=== PATIENT | female | born 1945 | race Caucasian/White ===

== ENCOUNTER → 2023-12-03 | Outpatient (REF) | payer MEDICARE, SELFPAY | LOC: DHSLP | PROVIDERS: ATTENDING PHYSICIAN Internal Medicine Critical Care Medicine; FAMILY PHYSICIAN Family Medicine | DX: G47.33 Obstructive sleep apnea (adult) (pediatric) (principal); R09.02 Hypoxemia | CPT/HCPCS: 95811 ==

== ENCOUNTER → 2023-12-30 | Outpatient (REF) | payer MEDICARE, SELFPAY | LOC: DHSLP | PROVIDERS: ATTENDING PHYSICIAN Internal Medicine Critical Care Medicine; FAMILY PHYSICIAN Family Medicine | DX: G47.33 Obstructive sleep apnea (adult) (pediatric) (principal) | CPT/HCPCS: 95810 ==

== ENCOUNTER → 2024-01-25 07:51 | Outpatient (REF) | payer MEDICARE, SELFPAY | LOC: RAD 07:51 | PROVIDERS: ATTENDING PHYSICIAN Specialist; FAMILY PHYSICIAN Family Medicine | DX: J44.9 Chronic obstructive pulmonary disease, unspecified (principal); M19.011 Primary osteoarthritis, right shoulder; M25.511 Pain in right shoulder; Z96.611 Presence of right artificial shoulder joint | CPT/HCPCS: 73200 ==

== ENCOUNTER 2024-02-04 05:59 | Inpatient (IN) | payer MEDICARE, SELFPAY ==
--- NOTE | 2024-01-20 13:11 | CM ---
Patient is scheduled for an elective R Reverse TSA on 02/04/24. Spoke with patient prior to surgery. Patient had a L Reverse TSA at in October 2022. Reintroduced role of Orthopedic Navigator. Patient reports that she lives in a multi story home.
She lives on the first floor and her daughter and granddaughter live on the second. There are two (101) steps to enter. Currently she functions independently. She is on 2 liters oxygen (supplied by [employer]). Her toilet is high. She has a walker
(which she uses to carry things outside of the home) and cpap. She has had VN services through [facility]. PCP is Dr. Teodoro Morris.
Discussed orthopedic program and post surgical plans. Reviewed anticipated length of stay and assistance that she may need at discharge. Explained that goal is for her to return home at discharge. Also reviewed MD follow up and transition to
outpatient therapy. Patient is in agreement with tentative plan. She states that she will have support from her daughter and granddaughter. Her sister from [place] will be coming to stay with her for a week.
Patient will complete online education.
Plan: Orthopedic Navigator will be involved in the care of patient after surgery and will reassess discharge needs at that time.
[2024-01-25 08:17] VITALS: BMI 30.3
[2024-01-25 08:50] LABS: Hematocrit 40.3 % (37.0-47.0); Hemoglobin 13.7 g/dL (12.0-16.0); Mean Corpuscular Hgb 31.9 pg (27.0-31.0); Mean Corpuscular Volume 93.9 fL (81.0-99.0); Mean Platelet Volume 10.6 fL (7.4-10.4); Platelet Count 142 10^3/uL (130-400); Red Blood Cell Count 4.29 10^6/uL (4.20-5.40); Red Cell Dist. Width 13.2 % (11.5-14.5); White Blood Cell Count 7.3 10^3/uL (4.8-10.8)
[2024-01-25 09:10] LABS: ALT (SGPT) 32 U/L (0-35); AST (SGOT) 46 U/L (14-36); Albumin 4.3 g/dl (3.5-5.0); Alkaline Phosphatase 171 U/L (38-126); Blood Urea Nitrogen 23 mg/dl (7-17); Calcium 9.3 mg/dl (8.4-10.2); Carbon Dioxide 25 mmol/L (22-30); Chloride 104 mmol/L (98-107); Estimated Creatinine Clearance 43 ml/min; Glucose 223 mg/dl (70-99); Potassium 4.2 mmol/L (3.5-5.1); Sodium 137 mmol/L (135-145); Total Bilirubin 0.6 mg/dl (0.2-1.3); Total Protein 7.5 g/dl (6.3-8.2); eGFR 58.02
[2024-01-25 12:56] LABS: Glycohemoglobin (HgbA1c) 7.1 % (4.0-5.6)
[2024-01-25 14:40] VITALS: BMI 30.3
[2024-02-04] VITALS (13 sets, daily range): BP systolic 122–165; BP diastolic 60–94
[2024-02-04] MEDS: TYLENOL 1000 MG PO (06:29)
[2024-02-04] MEDS: CELEBREX 200 MG PO (06:31)
[2024-02-04] MEDS: NORMOSOL-R 1000 IV (06:32)
[2024-02-04] MEDS: SUBLIMAZE 25 MCG IV (09:57)
[2024-02-04] MEDS: NSS 1000 IV (10:30)
--- NOTE | 2024-02-04 11:53 | CM ---
Reviewed chart. Patient admitted as planned for elective R Reverse TSA. Met with patient at bedside. Confirmed information previously obtained for case management assessment and discussed discharge plans. The plan is for patient to return home at
discharge. Her sister will be staying with her for a week. She will also have support from her daughter and granddaughter who live on the second floor of patient's home. Discussed option of VN services; patient declines and services are not
indicated.
Patient will use [facility] for discharge prescriptions.
No needs currently identified.
--- NOTE | 2024-02-04 12:19 | W.PN.UPDATE ---
Update Note
Progress Note Update
1. Advanced osteoarthritis of the right shoulder. Right total
shoulder arthroplasty, possibly reverse following CT scan results,
but probable based on rotator cuff arthropathy. Benefits and risks
have been discussed with the patient. These risks are understood
and she wishes to proceed.
2. DVT prophylaxis, aspirin.
3. Previous postoperative dysphagia with questionable aspiration
pneumonia and underlying Schatzki's ring, hiatal hernia and GERD.
The patient did not ultimately require outpatient antibiotics, but
was evaluated by both speech and Pulmonary. Given this, we will
place her on aspiration precautions postoperatively with mechanical
soft diet and monitor.
4. Irritable bowel with diarrhea. We will continue stool softener,
but laxatives will be on a p.r.n. basis.
5. 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
apnea, pulmonary carcinoid and asthma. The patient will have
standing order nebulizers as well as incentive spirometry and we
will monitor O2 sats closely.
6. Hypotension. Monitor blood pressure and minimize opioids both
for blood pressure status as well lung perfusion.
[2024-02-04] MEDS: VENTOLIN NEBULES INH (12:20)
[2024-02-04 12:31] LABS: Glucose - Point of Care 199 mg/dl (70-99)
[2024-02-04] MEDS: ProAmatine PO ×2 (12:32→17:16)
[2024-02-04] MEDS: TYLENOL 650 MG PO ×3 (12:35→21:26)
[2024-02-04] MEDS: LANTUS 0.100000000000000006 UNITS SC (12:37)
[2024-02-04] MEDS: NOVOLOG FLEXPEN 5 UNITS SC ×2 (13:10→16:45)
[2024-02-04] MEDS: NOVOLOG FLEXPEN-MODERATE RESISTANCE 1 UNITS SC (13:10)
[2024-02-04] MEDS: VENTOLIN NEBULES 2.5 MG INH ×2 (14:10→19:52)
[2024-02-04 16:27] LABS: Glucose - Point of Care 270 mg/dl (70-99)
[2024-02-04] MEDS: ANCEF 5 IV (16:43)
[2024-02-04] MEDS: DECADRON 2 MG IV (16:43)
[2024-02-04] MEDS: NOVOLOG FLEXPEN-MODERATE RESISTANCE 5 UNITS SC (16:44)
[2024-02-04] MEDS: SINGULAIR 10 MG PO (16:45)
[2024-02-04] MEDS: ASPIRIN 325 MG PO (16:45)
[2024-02-04] MEDS: ROXICODONE 10 MG PO ×2 (17:15→21:25)
[2024-02-04 21:15] LABS: Glucose - Point of Care 189 mg/dl (70-99)
[2024-02-04] MEDS: BACTROBAN 2% OINTMENT 1 APPLIC NASAL (21:25)
[2024-02-04] MEDS: FEOSOL 325 MG PO (21:26)
[2024-02-04] MEDS: PROTONIX 20 MG PO (21:26)
[2024-02-04] MEDS: COLACE 100 MG PO (21:26)
[2024-02-04] MEDS: SENOKOT 17.1999999999999993 MG PO (21:27)
[2024-02-04] MEDS: ProAIR HFA INHALER 2 PUFF INH (21:42)
--- NOTE | 2024-02-04 23:16 | RESPNOTE ---
pt assisted with own cpap machine
[2024-02-05] MEDS: DECADRON 2 MG IV ×2 (00:28→09:59)
[2024-02-05] MEDS: ANCEF 5 IV (00:28)
[2024-02-05] MEDS: TYLENOL 650 MG PO ×3 (00:28→13:14)
[2024-02-05] MEDS: MAALOX 30 ML PO (01:18)
[2024-02-05 03:04] VITALS: BP 116/58
[2024-02-05] MEDS: TYLENOL PO (04:52)
[2024-02-05 07:10] VITALS: BP 144/60
[2024-02-05] MEDS: VENTOLIN NEBULES 2.5 MG INH ×2 (07:34→11:12)
[2024-02-05 08:00] LABS: Glucose - Point of Care 187 mg/dl (70-99)
--- NOTE | 2024-02-05 09:12 | W.PN.ORTHO ---
Today's Communication / Plan
-
Patient doing great this AM
Plan is for D/c home today, appreciate CM
Continue sling RUE. No lifting or WB
May do limited instructed exercises via PT
Dressing to remain until outpatient follow-up in 2 weeks
ASA 325mg daily x 4 weeks for DVT prophylaxis
Assessment
.
Distal Motor Intact: Yes
Dressing:
Clean, dry and intact. aquacel in place right shoulder
Assessment:
POD#1 Right RTSA
Overall doing well
DNVI RUE
Plan
.
Surgery / Date: Right RTSA February 17 ([facility])
DVT Prophylaxis: Aspirin
Activity:
Out of bed. Sling to remain RUE, NWB
PT/OT
Discharge Plan: Home
Subjective
.
.:
Patient resting comfortably. Little to no right shoulder pain
Vital Signs and Labs
.
Vital Signs and Labs:
Lab Results
01/25/24 08:06
01/25/24 08:06
Temp Pulse Resp BP Pulse Ox
97.8 F 86 22 144/60 91
02/05/24 07:10 02/05/24 07:39 02/05/24 07:39 02/05/24 07:10 02/05/24 07:39
Non-invasive Hgb result: 12.7
--- NOTE | 2024-02-05 09:19 | W.DS.TRANS ---
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
-
Discharge Instructions:
Discharge Diagnosis/Procedures Right shoulder OA s/p RTSA
Diet No restrictions
Activity As tolerated,Other activity
Additional Activity remain in sling. No lifting. No WB
Driving Restrictions No driving
Bathing Restrictions OK to Shower
Instructions:
Stand-Alone Forms: Total Shoulder Replacement D/C
Changes to Home Medications: No
Discharge Medications:
DC Medications w/original date entered in [facility]
atenolol 100 mg tablet 100 mg PO DAILY Blood pressure 07/20/16
lansoprazole 30 mg capsule,delayed release (Prevacid) 30 mg PO BID GERD 07/20/16
montelukast 10 mg tablet 10 mg PO QPM ALLERGY 07/20/16
ascorbate calcium-bioflavonoid 1,000 mg-200 mg tablet (Lashonda-C with Bioflavonoids) 1 ea PO DAILY Supplement 12/30/16
calcium carbonate 500 mg-vitamin D3 3.125 mcg (125 unit) tablet 1 tab PO DAILY Supplement 12/30/16
potassium 99 mg tablet 99 mg PO DAILY Supplement ##0 03/06/22
albuterol sulfate 5 mg/mL(0.5 %) solution for nebulization 5 mg inhalation Q4HPRN PRN rescue inhaler 03/18/22
ferrous sulfate 325 mg (65 mg iron) tablet (iron) 325 mg BID Supplement ##0 10/07/22
fexofenadine 60 mg tablet 60 mg PO DAILY Allergies 10/07/22
lanreotide 60 mg/0.2 mL subcutaneous syringe 60 mg SC Q4W Somatostatin Analog 10/07/22
mecobalamin (vitamin B12) 1,000 mg PO DAILY Supplement 10/07/22
vitamin B complex 1 tab PO DAILY Supplement 10/07/22
zinc acetate 25 mg (zinc) capsule 25 mg PO DAILY Supplement 10/07/22
ipratropium bromide 42 mcg (0.06 %) nasal spray 2 spray intranasal BID Congestion 10/12/22
hydrochlorothiazide 12.5 mg capsule 12.5 mg PO DAILY Fluid retention/Swelling #1 cap 11/05/22
Probiotic 1 tab PO DAILY 01/21/24
albuterol sulfate 90 mcg/actuation aerosol inhaler 2 puff inhalation PRN PRN SOB, Wheezes 01/21/24
celecoxib 200 mg capsule (Celebrex) 200 mg PO BID 01/21/24
cyanocobalamin (vitamin B-12) 1,000 mcg tablet (Vitamin B-12) 1,000 mcg PO DAILY 01/21/24
docusate sodium 100 mg capsule 100 mg PO PRN PRN Constipation 01/21/24
glucosamine HCl 500 mg tablet 500 mg PO DAILY 01/21/24
glycopyrrolate 9 mcg-formoterol 4.8 mcg HFA aerosol inhaler (Bevespi Aerosphere) 2 puff inhalation BID 01/21/24
mupirocin 2 % topical ointment 1 applic topical BID infection prevention #1 tube 01/25/24
aspirin 325 mg tablet 325 mg PO DAILY Blood clot prevention/tx #30 tabs 02/05/24
oxycodone 5 mg tablet 5 mg PO Q4HPRN PRN moderate pain #20 tabs 02/05/24
Home Medication Changes
Pending Results: No
--- NOTE | 2024-02-05 09:55 | CM ---
Reviewed the chart notes and spoke with the patient at the bedside. IMM signed and placed on the chart. Patient is being discharged to home with no needs. The patient's daughter will provide transportation. CM continues to be available to
patient/family and is monitoring medical plan for needs at discharge.
Plan: Discharge to home today.
[2024-02-05] MEDS: NOVOLOG FLEXPEN-MODERATE RESISTANCE 1 UNITS SC (09:56)
[2024-02-05] MEDS: NOVOLOG FLEXPEN 5 UNITS SC ×2 (09:56→13:13)
[2024-02-05] MEDS: LANTUS 0.100000000000000006 UNITS SC (09:57)
[2024-02-05] MEDS: VISBIOME 1 CAP PO (09:58)
[2024-02-05] MEDS: PROTONIX 20 MG PO (09:58)
[2024-02-05] MEDS: CLARITIN 10 MG PO (09:58)
[2024-02-05] MEDS: ASPIRIN 325 MG PO (09:58)
[2024-02-05] MEDS: ProAmatine 5 MG PO ×2 (09:58→13:14)
[2024-02-05] MEDS: COLACE 100 MG PO (09:58)
[2024-02-05] MEDS: TENORMIN 25 MG PO (09:58)
[2024-02-05] MEDS: FEOSOL 325 MG PO (09:59)
[2024-02-05] MEDS: ORETIC 12.5 MG PO (09:59)
[2024-02-05] MEDS: SENOKOT 17.1999999999999993 MG PO (09:59)
[2024-02-05] MEDS: BACTROBAN 2% OINTMENT 1 APPLIC NASAL (10:00)
[2024-02-05 11:32] VITALS: BP 135/60
[2024-02-05 12:11] LABS: Glucose - Point of Care 240 mg/dl (70-99)
[2024-02-05] MEDS: NOVOLOG FLEXPEN-MODERATE RESISTANCE 3 UNITS SC (13:13)
== END 2024-02-05 13:55 | disposition home or self-care (01) | DRG 483 ==
LOC: 2 SOUTH 05:59
PROVIDERS: ADMITTING PHYSICIAN Specialist; FAMILY PHYSICIAN Family Medicine
PROC: 0LS40ZZ Reposition Left Upper Arm Tendon, Open Approach (ICD-10-PCS; 2024-02-04)
PROC: 0RRK00Z Replacement of Left Shoulder Joint with Reverse Ball and Socket Synthetic Substitute, Open Approach (ICD-10-PCS; 2024-02-04)
DX: M19.011 Primary osteoarthritis, right shoulder (principal)
CPT/HCPCS: 36415; 73020; 80053; 82962; 83036; 85027; 87070; 93005; 94640; 97110; 97167; 97535; C1713; C1776

== ENCOUNTER → 2024-07-04 14:31 | Outpatient (REF) | payer MEDICARE, SELFPAY ==
[2024-07-04 14:37] LABS: % Basophils 0.5 % (0-2); % Eosinophils 5.4 % (0-6); % Immature Granulocytes 0.3 % (0-0.5); % Lymphocytes 29.3 % (20.5-51.1); % Neutrophils 56.5 % (42.2-75.2); Absolute Eosinophils 0.4 10^3/uL (0-0.7); Absolute Lymphocytes 2.2 10^3/uL (1.2-3.4); Absolute Monocytes 0.6 10^3/uL (0.1-0.6); Absolute Neutrophils 4.2 10^3/uL (1.4-6.5); Hematocrit 37.7 % (37.0-47.0); Hemoglobin 12.2 g/dL (12.0-16.0); Mean Corp Hgb Conc. 32.4 g/dL (33.0-37.0); Mean Corpuscular Hgb 28.6 pg (27.0-31.0); Mean Corpuscular Volume 88.3 fL (81.0-99.0); Mean Platelet Volume 10.2 fL (7.4-10.4); Platelet Count 149 10^3/uL (130-400); Red Blood Cell Count 4.27 10^6/uL (4.20-5.40); Red Cell Dist. Width 15.7 % (11.5-14.5); White Blood Cell Count 7.4 10^3/uL (4.8-10.8)
[2024-07-04 15:39] LABS: ALT (SGPT) 30 U/L (0-35); AST (SGOT) 52 U/L (14-36); Albumin 4.2 g/dl (3.5-5.0); Alkaline Phosphatase 162 U/L (38-126); Blood Urea Nitrogen 17 mg/dl (7-17); Calcium 9.1 mg/dl (8.4-10.2); Carbon Dioxide 28 mmol/L (22-30); Chloride 98 mmol/L (98-107); Glucose 272 mg/dl (70-99); Potassium 4.1 mmol/L (3.5-5.1); Sodium 140 mmol/L (135-145); Total Bilirubin 0.6 mg/dl (0.2-1.3); Total Protein 7.5 g/dl (6.3-8.2); eGFR 58.02
== END ==
LOC: OIDL 14:31
PROVIDERS: ATTENDING PHYSICIAN Internal Medicine Hematology & Oncology
DX: C7A.090 Malignant carcinoid tumor of the bronchus and lung (principal); D50.9 Iron deficiency anemia, unspecified; E34.00 Carcinoid syndrome, unspecified
CPT/HCPCS: 80053; 85025

== ENCOUNTER → 2024-07-05 15:14 | Outpatient (REF) | payer MEDICARE, SELFPAY | LOC: HWRAD 15:14 | PROVIDERS: ATTENDING PHYSICIAN Internal Medicine Critical Care Medicine; FAMILY PHYSICIAN Family Medicine | DX: C34.80 Malignant neoplasm of overlapping sites of unspecified bronchus and lung (principal) | CPT/HCPCS: 71046 ==

== ENCOUNTER 2024-09-23 14:27 | Emergency (ER) | payer MEDICARE, SELFPAY ==
[2024-09-23] MEDS: ADACEL 0.5 ML IM (18:22)
--- NOTE | 2024-09-23 20:10 | ED.GENMED ---
History of Present Illness
General
Chief Complaint: Fall
Source: patient and family
Exam Limitations: none
Time Seen by Provider: 09/23/24 17:21
Nursing documentation reviewed up to this point in time: agreed with
History of Present Illness
History of Present Illness:
79-year-old female presenting to the emergency department today after a fall tripping over her dog hitting her back of her head did not lose consciousness also injured her upper extremities bilaterally. Denies additional concerns no chest pain
abdominal pain no numbness or weakness.
Past History
Past History
ED Past Medical History: GERD and Other (Arthritis)
ED Past Surgical History: Other
Social History
Tobacco: Non-smoker
Living: with family
Review of Systems
Review of Systems
Allergies reviewed?: Yes
All Other Systems: ROS reviewed and negative except as documented in HPI and ROS
Phy Exam
Physical Exam
Physical Exam:
GENERAL: Alert , in no apparent distress
EYE: pupils equal and reactive
NECK: Supple, no significant adenopathy.
ENT: Small superficial laceration to the occipital scalp no active bleeding o/p clr, mmm.
CARDIAC: Regular rate and rhythm .
LUNGS: Clear breath sounds bilaterally, no acute respiratory distress, no wheezes/rales/rhonchi
ABDOMEN: Soft, without focal tenderness, no r/g, no cvat
NEUROLOGICAL: Alert and oriented, no focal neuro deficits
SKIN: Warm and dry, skin intact.
MUSCULOSKELETAL: Mild discomfort to the left upper arm good range of motion and strength no edema, well perfused.
PSYCH: Normal and appropriate interaction.
Course
Orders/Labs/Results
Orders:
Orders
09/23/24 14:50
CT Head W/o Iv Contrast Urgent
Comment:
Reason For Exam: fall
09/23/24 18:18
Tetanus/Diphth/Acelpertussis [Adacel] 0.5 ml IM .ONCE ONE
CR Elbow - Right Min 3 Views Urgent
Comment:
Reason For Exam: right elbow pain after fall
CR Shoulder, Trauma - Left Urgent
Comment:
Reason For Exam: fal lhsouler pain
CR Wrist - Left Min 3 Views Urgent
Comment:
Reason For Exam: wrist pain
Vital Signs
Initial and Last Documented VS:
Initial Vital Signs
Temp Pulse Resp Pulse Ox
98.0 F 66 16 95
09/23/24 14:42 09/23/24 14:42 09/23/24 14:42 09/23/24 14:42
Last Documented Vital Signs
Temp Pulse Resp Pulse Ox
98.0 F 66 16 95
09/23/24 14:42 09/23/24 14:42 09/23/24 14:42 09/23/24 14:42
MDM/Problems Addressed
MDM/Problems Addressed:
79-year-old female presenting to the emergency department today with concerns of a fall. Has a small cut to the back of her head does not require emergent closure. Was given updated tetanus shot CT scan without emergent findings. X-rays of the
left shoulder wrist and then right elbow. No signs of fracture. Stable for outpatient management return precautions given.
*Critical Care Note
Total Time (30-74mins, 75-104mins- exclusive of procedures): Not Applicable
ED Attending Note
-
Portions of this chart may have been created with voice recognition software.� Occasional wrong word or��sound alike� substitutions may have occurred due to the inherent limitations of voice recognition software.
Discharge Plan
Departure
Patient Disposition: Home (Routine Discharge)
Date of Disposition: 09/23/24
Time of Disposition: 20:10
Patient with high blood pressure during this ER visit?: No
Condition: Good
Covid-19: Not Applicable
Discharge Problem:
Fall, Laceration of scalp, Arm sprain
Instructions: Preventing falls in adults
Prescriptions:
No Action
atenolol 100 MG tablet
100 mg PO DAILY
lansoprazole [Prevacid] 30 MG capsule,delayed release(DR/EC)
30 mg PO BID
montelukast 10 MG tablet
10 mg PO QPM
calcium carbonate-vitamin D3 1 EACH tablet
1 tab PO DAILY
Lashonda-C with Bioflavonoids 1 EACH tablet
1 ea PO DAILY
potassium 99 mg Tablet
99 mg PO DAILY Qty: 0
albuterol sulfate 5 MG/ML solution for nebulization
5 mg inhalation Q4HPRN PRN (Reason: rescue inhaler )
zinc acetate 25 mg (zinc) Capsule
25 mg PO DAILY
fexofenadine 60 mg Tablet
60 mg PO DAILY
ferrous sulfate [iron] 325 mg (65 mg iron) Tablet
325 mg BID Qty: 0
vitamin B complex Tablet
1 tab PO DAILY
lanreotide 60 mg/0.2 mL Syringe
60 mg SC Q4W
mecobalamin (vitamin B12)
1,000 mg PO DAILY
ipratropium bromide 42 mcg (0.06 %) [place],Non-Aerosol
2 spray INTRANASAL BID
hydrochlorothiazide 12.5 MG capsule
12.5 mg PO DAILY Qty: 1 0RF
celecoxib [Celebrex] 200 mg Capsule
200 mg PO BID
cyanocobalamin (vitamin B-12) [Vitamin B-12] 1,000 mcg Tablet
1,000 mcg PO DAILY
albuterol sulfate 90 mcg/actuation Hfa Aerosol Inhaler
2 puff INHALATION PRN PRN (Reason: SOB, Wheezes)
glucosamine HCl 500 mg Tablet
500 mg PO DAILY
Bevespi Aerosphere 9-4.8 mcg Hfa Aerosol Inhaler
2 puff INHALATION BID
Probiotic
1 tab PO DAILY
docusate sodium 100 mg capsule
100 mg PO PRN PRN (Reason: Constipation)
mupirocin 2 % ointment
1 applic topical BID Qty: 1 0RF
Patient Comments:
Patient started this reatment 02/01/24 in the morning. Patient administeres this medication today 02/04/24 @ 05:00.
aspirin 325 mg Tablet
325 mg PO DAILY Qty: 30 0RF
oxycodone 5 mg Tablet
5 mg PO Q4HPRN PRN (Reason: moderate pain) Qty: 20 0RF
Activity Restrictions/Additional Instructions:
You came to the emergency department after a fall. Here you had a head CT that did not show any emergent findings. Your x-rays did not show any fractures. Please feel closely with the primary care doctor. Return to the emergency department any
worsening, new or concerning symptoms.
Interventions
Interventions:
*Risk Screen - Suicide Last Done: 09/23/24 14:42
*General Assessment Last Done: 09/23/24 14:42
*Neglect/Abuse Screening Last Done: 09/23/24 18:00
ED- Fall Risk Assessment Last Done: 09/23/24 18:02
*ED COVID-19 Vaccine History Last Done: 09/23/24 14:42
ED-Musculoskeletal Assessment Last Done: 09/23/24 18:01
ED- Neurological Assessment Last Done: 09/23/24 18:01
ED-Skin Assessment Last Done: 09/23/24 18:01
Discharge Date and Time
Print Language: OMANI
== END 2024-09-23 22:22 | disposition home or self-care (01) ==
LOC: EMR 14:27
PROVIDERS: EMERGENCY PHYSICIAN Emergency Medicine
DX: S01.01XA Laceration without foreign body of scalp, initial encounter (principal); S63.502A Unspecified sprain of left wrist, initial encounter; W19.XXXA Unspecified fall, initial encounter; Z23 Encounter for immunization; K21.9 Gastro-esophageal reflux disease without esophagitis; M18.12 Unilateral primary osteoarthritis of first carpometacarpal joint, left hand; Z96.612 Presence of left artificial shoulder joint
CPT/HCPCS: 99284; 90471; 70450; 73030; 73080; 73110; 90715

== ENCOUNTER → 2024-10-25 09:09 | Outpatient (REF) | payer MEDICARE, SELFPAY | LOC: RAD 09:09 | PROVIDERS: ATTENDING PHYSICIAN Family Medicine; FAMILY PHYSICIAN Family Medicine | DX: Z13.820 Encounter for screening for osteoporosis (principal); Z78.0 Asymptomatic menopausal state; M85.88 Other specified disorders of bone density and structure, other site | CPT/HCPCS: 77080 ==

== ENCOUNTER → 2024-11-13 15:57 | Outpatient (REF) | payer MEDICARE, SELFPAY | LOC: HWRAD 15:57 | PROVIDERS: ATTENDING PHYSICIAN Otolaryngology; FAMILY PHYSICIAN Family Medicine | DX: M54.2 Cervicalgia (principal) | CPT/HCPCS: 72040 ==

== ENCOUNTER → 2025-08-24 10:53 | Outpatient (REF) | payer MEDICARE, SELFPAY | LOC: HWWDC 10:53 | PROVIDERS: ATTENDING PHYSICIAN Internal Medicine Hematology & Oncology; FAMILY PHYSICIAN Family Medicine | DX: C7A.090 Malignant carcinoid tumor of the bronchus and lung (principal); D50.9 Iron deficiency anemia, unspecified | CPT/HCPCS: 77063; 77067 ==